=== PATIENT | male | born 1965 | race Caucasian/White ===

== ENCOUNTER 2016-09-22 04:54 | Emergency (ER) | payer BC ==
[~2016-09-22] VITALS: Ht 175.3 cm; Wt 100.0 kg
[2016-09-22 04:58] VITALS: TEMP 97.6
[2016-09-22] MEDS ORDERED: PROBIOTIC-MAJOR PO (05:03)
[2016-09-22 05:36] LABS: INFLUENZA B NEGATIVE
[2016-09-22 05:46] LABS: BASO # 0.2 (0.0-0.2); BASO % 2.3 % (0.0-2.0); EOS # 0.8 (0.0-0.7); EOS % 10.9 % (0-4.0); GRAN # 4.1 (1.4-6.5); GRAN % 54.9 % (42.2-75.2); LYMPH # 1.7 (1.2-3.4); LYMPH % 23.4 % (20.0-51.0); MEAN CELL VOLUME 96 fl (80.0-100.0); MEAN CORPUSCULAR HGB CONC 33 g/dl (33.0-37.0); MEAN PLATELET VOLUME 9.8 fl (7.4-10.4); MONO # 0.6 (0.1-0.6); MONO % 8.1 % (1.7-9.3); PLATELET COUNT 308 K/mm3 (130-400); RED BLOOD COUNT 3.28 M/mm3 (4.20-5.60); REDCELL DISTRIBUTION WIDTH-CV 13.4 % (11.5-14.5); WHITE BLOOD COUNT 7.4 K/mm3 (4.8-10.8)
[2016-09-22 05:47] LABS: HEMATOCRIT 31.5 % (42.0-52.0); HEMOGLOBIN 10.5 g/dl (13.5-18.0); MEAN CORPUSCULAR HEMOGLOBIN 32 pg (27.0-31.0)
[2016-09-22 05:59] LABS: ALANINE AMINOTRANSFERASE 52 U/L (21-72); ALBUMIN 4.9 gm/dL (3.5-5.0); ALKALINE PHOSPHATASE 56 U/L (50-136); ANION GAP 11 mmol/L (7-16); BILIRUBIN,TOTAL 0.7 mg/dL (0.0-1.0); BLOOD UREA NITROGEN 17 mg/dL (9-20); CALCIUM 9.7 mg/dL (8.4-10.2); CARBON DIOXIDE 30 mmol/L (22-30); CHLORIDE 98 mmol/L (98-107); CREATININE, serum 1.56 mg/dL (0.66-1.25); GLUCOSE 92 mg/dL (74-106); MAGNESIUM 2.2 mg/dL (1.6-2.3); PHOSPHOROUS 4.1 mg/dL (2.5-4.5); POTASSIUM 4.2 mmol/L (3.4-5.0); SODIUM 139 mmol/L (137-145); TOTAL PROTEIN 8.4 gm/dL (6.4-8.2)
[2016-09-22 06:12] LABS: PH 6 (5-8); SQUAMOUS EPITHELIAL None Seen /hpf; URINE APPEARANCE Clear; URINE BACTERIA Rare /hpf; URINE BILIRUBIN Negative (NEGATIVE); URINE BLOOD Negative (NEGATIVE); URINE COLOR Yellow; URINE GLUCOSE Negative (NEGATIVE); URINE KETONE Negative (NEGATIVE); URINE RBC 0-2 /hpf; URINE UROBILINOGEN Negative (NEGATIVE); URINE WBC 0-2 /hpf
[2016-09-22] MEDS ORDERED: SYNTHROID0.1 MG/TAB PO (07:57)
[2016-09-22 08:13] VITALS: BP 126/86; PULSE 64
== END 2016-09-22 08:11 | disposition home or self-care (01) ==
LOC: COL.ER 04:54
PROVIDERS: Emergency Medicine
DX: D64.9 Anemia, unspecified (principal); E03.9 Hypothyroidism, unspecified
CPT/HCPCS: J1170; J7030

== ENCOUNTER 2016-12-31 02:32 | Emergency (ER) | payer BC ==
[~2016-12-31 02:32] MED LIST: PROBIOTIC-MAJOR PO; SYNTHROID0.1 MG/TAB PO
[2016-12-31 02:35] VITALS: BP 109/68; PULSE 81; TEMP 97.6
== END 2016-12-31 04:24 | disposition home or self-care (01) ==
LOC: COL.ER 02:32
DX: S09.90XA Unspecified injury of head, initial encounter (principal); S01.01XA Laceration without foreign body of scalp, initial encounter; W01.198A Fall on same level from slipping, tripping and stumbling with subsequent striking against other object, initial encounter; Y92.009 Unspecified place in unspecified non-institutional (private) residence as the place of occurrence of the external cause; F10.120 Alcohol abuse with intoxication, uncomplicated; Z23 Encounter for immunization

== ENCOUNTER 2017-01-08 14:23 | Emergency (ER) | payer BC ==
[2017-01-08 14:26] VITALS: BP 145/76; PULSE 75; TEMP 98.2
== END 2017-01-08 14:30 | disposition home or self-care (01) ==
LOC: COL.ER 14:23
DX: S01.01XD Laceration without foreign body of scalp, subsequent encounter (principal)

== ENCOUNTER 2017-10-11 18:53 | Emergency (ER) | payer BC ==
[~2017-10-11] VITALS: Ht 175.3 cm; Wt 102.3 kg
[2017-10-11 18:59] VITALS: BP 135/79; TEMP 97.8
[2017-10-11] MEDS ORDERED: SYNTHROID 0.10.15 MG PO (19:02)
[2017-10-11 21:00] VITALS: PULSE 88
== END 2017-10-11 21:03 | disposition home or self-care (01) ==
LOC: COL.ER 18:53
DX: G43.109 Migraine with aura, not intractable, without status migrainosus (principal)

== ENCOUNTER → 2020-10-12 | Outpatient (CLI) | payer BC ==
[~2020-10-12] MED LIST changes: +SYNTHROID 0.10.15 MG PO
== END ==
LOC: COL.RAD 10-06 14:15
DX: M25.562 Pain in left knee (principal); M25.462 Effusion, left knee